=== PATIENT | female | born 1985 ===

== ENCOUNTER 2018-09-15 10:44 | Outpatient (CLI) | payer OTHER | END 2018-09-15 11:04 | disposition home or self-care (01) | LOC: MAMO-SONO 10:44 | DX: N64.4 Mastodynia (principal) ==

== ENCOUNTER 2018-09-15 12:42 | Outpatient (CLI) | payer OTHER | END 2018-09-15 15:09 | disposition home or self-care (01) | LOC: LAB 12:42 | DX: E78.49 Other hyperlipidemia (principal); R42 Dizziness and giddiness; Z00.00 Encounter for general adult medical examination without abnormal findings ==